=== PATIENT | female | born 1935 | race Caucasian/White ===

== ENCOUNTER 2016-09-24 10:46 | Inpatient (IN) | payer MEDICARE, MEDICAID ==
[~2016-09-24] VITALS: Ht 162.6 cm; Wt 80.6 kg
[~2016-09-24 10:46] MED LIST: ASPIRIN EC81 MG PO; CLARITIN DPS10 MG PO; COLACE-DPS100 MG PO; DELTASONE DPS10 MG PO; DELTASONE DPS20 MG PO; DESYREL-DPS50 MG PO; DIFLUCAN DPS150 MG PO; DIOVAN160 MG PO; DULERA 200/58.8 GM IH; DUONEB DPS3 ML IH; GLUTOSE 1537.5 GM PO; HUMALOG100 UNIT/1 SQ; LANTUS100 UNITS/ SQ; LASIX DPS40 MG PO; LIPITOR DPS40 MG PO; LOTRISONE DPS45 GM TP; MAALOX DPS30 ML PO; NORVASC5 MG PO; NYSTATIN TP; PLAVIX75 MG PO; PROVENTIL HFA6.7 GM IH; SURFAK240 MG PO; TRIAMCINOLONE TP; TYLENOL DPS325 MG PO; ULTRAM DPS50 MG PO; VANTIN DPS200 MG PO; VITAMIN D1000 UNI1 PO; ZEBETA5 MG PO; ZITHROMAX250 MG PO
[2016-09-29] MEDS ORDERED: LEVAQUIN DPS750 MG PO (19:52)
[2016-09-29] MEDS ORDERED: ASA CHILDREN'S81 MG PO (19:52)
[2016-09-29] MEDS ORDERED: GLUTOSE 1537.5 GM PO (19:57)
[2016-09-29] MEDS ORDERED: MAALOX DPS30 ML PO (19:57)
[2016-09-29] MEDS ORDERED: DULCOLAX-DPS10 MG PR (19:59)
--- NOTE | 2016-10-02 09:49 | DS ---
ADMIT: 09/24/2016 RM/LOC: 430 [facility] MR#: [id number] [address] [facility] [address] [place], [place] [address] BABITA MCPHERSON I [address] [place] [address] Discharge Summary SEX: F AGE: 81 : 1935 ADMISSION DATE: 09/24/2016 DISCHARGE DATE: 09/28/2016 DISCHARGE DIAGNOSES: 1. Acute hypoxemic respiratory failure. 2. Severe bilateral pneumonia. 3. Underlying COPD (chronic obstructive pulmonary disease). 4. Diabetes mellitus. 5. Osteoarthritis. 6. Hypertension. 7. History of coronary artery disease. 8. Hypomagnesemia. 9. Constipation. 10.Tremor. 11.Hyperglycemia. HOSPITAL COURSE: The patient was admitted initially to the floor and then was transferred to the ICU because of increasing O2 requirements. She was found to have severe bilateral infiltrates. She did have a CT scan of her chest, which did not show any evidence of a PE. She was placed on broad-spectrum IV antibiotics, IV steroids, and given IV Lasix. She slowly made improvement of her hypoxemic respiratory failure. At the time of discharge, she was on 3 L of oxygen, and her chest x-ray had improved some. Overall, she was relatively stable and the plan was for her to be discharged to a skilled facility for rehab. DISCHARGE INSTRUCTIONS: 1. Aspirin 81 mg p.o. daily. 2. Prednisone 30 mg p.o. daily x5. 3. Desyrel 50 mg p.o. at bedtime. 4. Levaquin 750 p.o. daily x5. 5. Lipitor 40 mg p.o. at bedtime. 6. MiraLAX 17 g p.o. daily. 7. Plavix 75 mg p.o. daily. 8. Omeprazole 20 mg p.o. daily. 9. Advair 250/50 two puffs b.i.d. 10.DuoNebs q.i.d. q.2 hours p.r.n. 11.Levemir 50 units subcutaneous daily. 12.NovoLog sliding scale. 13.Bisoprolol 5 mg p.o. daily. ADMIT: 09/24/2016 RM/LOC: 430 [facility] MR#: [id number] [address] [facility] [address] [place], [place] [address] BABITA MCPHERSON I [facility] [address] [place], [place] [id number] Discharge Summary SEX: F AGE: 81 : 1935 14.Valsartan 160 p.o. daily. 15.NovoLog FlexPen 12 units subcu t.i.d. 16.Nystatin cream daily p.r.n. 17.Lasix 20 mg p.o. daily. 18.Vitamin D 1000 units daily. 19.Loratadine 10 mg p.o. daily. Otherwise, she is to follow up with Dr. Niyah Herrera in one week. She is to have PT/OT see and evaluate. Accu-Cheks AC and HS. An ADA diet. O2 p.r.n. sats less than 90. I spent over 35 minutes in the discharge planning and coordination and care of this patient. Niyah Herrera MD/ angel JOB #: [id number] CC: Niyah Herrera MD, Attending Physician Niyah Herrera MD, Family Physician
--- NOTE | 2016-10-27 09:22 | HP ---
ADMIT: 09/24/2016 RM/LOC: 306 [facility] MR#: [id number] 2620 [facility] [address] [place], [place] [address] RUBA CAREYHARRY [address] [place], [place] [address] History and Physical SEX: F AGE: 81 : 1935 DATE OF SERVICE: HISTORY OF PRESENT ILLNESS: Mrs. Carey is a very pleasant 81-year-old female, patient of Dr. Niyah Herrera, who presented to clinic this morning with a 2- week history of overall not feeling well. She states she hurts from head to toe. She said these symptoms seem to be progressively worsening over the last couple of weeks. She describes her illness as a feeling of burning from the inside out. Has also had intermittent chest tightness, sometimes described as sharp chest pain. Those pains last only a few seconds and then pass. She has also noted increased shortness of breath over the last couple of weeks, this morning she had a very hard time even catching her breath. She notes a cough. It is productive of thick mcneill-colored sputum. Has had intermittent chills and body aches as well. Unsure if she has had a temperature. Notes decreased appetite, nothing tastes good, has had intermittent nausea as well. Today, she complains of a burning in her stomach. She is drinking cold water try to make it feel better. She also notes inability to sleep, this is something new for her, she says she just has a hard time getting comfortable due to body aches and shortness of breath. Before the last 2 weeks, she was actually doing quite well. She recently came off home health care, she does live by herself but has a nephew that lives in town that is able to help her when needed. PAST MEDICAL HISTORY: 1. CAD, status post coronary stents. 2. COPD. 3. Diabetic peripheral neuropathy. 4. GERD. 5. Hyperlipidemia. 6. Hypertension. 7. Osteopenia. 8. Urinary incontinence. 9. Vitamin D deficiency. 10.Bilateral carotid artery disease. 11.Basal cell carcinoma. PAST SURGICAL HISTORY: Cardiac stents, otherwise noncontributory. FAMILY HISTORY: Noncontributory. SOCIAL HISTORY: Lives alone, no alcohol use. She is . MEDICATIONS: 1. Advair 250/50 one puff twice daily. 2. DuoNeb 4 times per day and q.2 hours p.r.n. 3. Norvasc 5 mg p.o. daily. 4. Aspirin 81 mg p.o. daily. 5. Lipitor 40 mg p.o. at bedtime. 6. Zebeta 5 mg one tablet p.o. daily. 7. Plavix 75 p.o. daily. ADMIT: 09/24/2016 RM/LOC: 306 [facility] MR#: [id number] [address] [address] BABITA CAREY I [facility] [address] [place] [address] History and Physical SEX: F AGE: 81 : 1935 8. Vitamin D3 1000 units p.o. daily. 9. Colace 100 mg p.o. b.i.d. p.r.n. 10.Lasix 40 mg p.o. daily. 11.Gabapentin 100 mg at bedtime. 12.NovoLog insulin 12 units t.i.d. 13.Lantus 40 units daily. 14.Prilosec 20 daily. 15.MiraLax 17 g daily. 16.ProAir 2 puffs q.i.d. p.r.n. 17.Renvela 800 mg daily. 18.Tramadol 50 mg every 4 hours as needed for pain. 19.Trazodone 50 mg at bedtime. 20.Diovan 160 mg p.o. daily. ALLERGIES: CIPRO WITH UNKNOWN REACTION HISTORY, CODEINE CAUSING VOMITING, CEDAX WITH UNKNOWN HISTORY, AND PREMARIN CAUSING EYE SWELLING. NO HISTORY OF ALCOHOL USE OR ABUSE. DOES HAVE A HISTORY OF TOBACCO ABUSE. REVIEW OF SYSTEMS: 12-point review of system was complete and otherwise negative as stated in the HPI. PHYSICAL EXAMINATION: VITAL SIGNS: Blood pressure 98/70, temperature 36.8 Celsius, pulse 88, respirations 20, oxygen level 77%. Weight patient declined. SKIN: Pale, with dark red circles underneath each eye. Skin is warm to touch with adequate capillary refill. EYES: PERRL, no drainage present. HEART: She does have a systolic murmur present. Rate is regular. LUNGS: No adventitious sounds auscultated, but does have decreased breath sounds, bilateral lower bases. ABDOMEN: Soft, slightly tender throughout. Bowel sounds are active x4. EXTREMITIES: Peripheral vascular, no obvious edema. NEURO: She is alert and appropriate, adding appropriately to conversation. LABORATORY AND X-RAY DATA: CBC revealed a leukocytosis of 17,000, hemoglobin 12.3. CMP grossly unremarkable although does have a low protein and low albumin and a high blood sugar of 310, creatinine 0.81, potassium 4.3, D-dimer elevated at 4.4, troponin negative. EKG done in clinic that shows slightly irregular heart rate with PACs as well as nonspecific ST changes questionable for history of infarct. Chest x-ray shows very small bilateral pleural effusions and centralized congestion questionable for pneumonia versus pulmonary edema. ASSESSMENT AND PLAN: Given Babita's hypoxia in clinical, sats were only 77% ADMIT: 09/24/2016 RM/LOC: 306 [facility] MR#: [id number] [address] [address] [place] [address] History and Physical SEX: F AGE: 81 : 1935 upon entering room. They eventually came up to 93% with 3 L of oxygen. She continued to complain of shortness of breath even with oxygen. Given her hypoxia, continued shortness of breath and leukocytosis as well as elevated D- dimer, we will admit her to [facility] for further workup. We will order a CT scan since her kidney function is normal. We will also start broad- spectrum antibiotics. Her blood pressure is slightly low at 98/50. So, we will hold her blood pressure medications and give her a saline bolus of IV fluids. We will also finish out septic workup with procalcitonin and UA. Repeat EKG in the morning. The patient's nephew was called and he was able to come and pick her up and take her directly over to the hospital for admission. This plan was discussed with Dr. Niyah Herrera, who will continue her care while in the hospital. Daniela Patel APRN / Niyah Herrera MD / janice JOB #: [id number] CC: Niyah Herrera, Attending Physician Niyah Herrera, Family Physician
[2016-11-29] MEDS ORDERED: DESYREL-DPS50 MG PO (12:17)
[2016-11-29] MEDS ORDERED: DELTASONE DPS10 MG PO (12:17)
[2016-11-29] MEDS ORDERED: MIRALAX PACKET17 GM PO (12:17)
[2016-11-29] MEDS ORDERED: LIPITOR40 MG PO (12:17)
[2016-11-29] MEDS ORDERED: PLAVIX75 MG PO (12:18)
[2016-11-29] MEDS ORDERED: PROTONIX40 MG PO (12:18)
[2016-11-29] MEDS ORDERED: DUONEB DPS3 ML IH (12:19)
[2016-11-29] MEDS ORDERED: DULERA 200/58.8 GM IH (12:19)
[2016-11-29] MEDS ORDERED: NOVOLOG100 UNIT/2 SQ ×2 (12:20→12:23)
[2016-11-29] MEDS ORDERED: LEVEMIR100 UNIT/1 SQ (12:20)
[2016-11-29] MEDS ORDERED: CEFTIN DPS500 MG PO (12:21)
[2016-11-29] MEDS ORDERED: CLARITIN DPS10 MG PO (12:21)
[2016-11-29] MEDS ORDERED: ZITHROMAX250 MG PO (12:22)
[2016-11-29] MEDS ORDERED: FLONASE 0.05% D16 GM NS (12:22)
[2016-11-29] MEDS ORDERED: MUCINEX600 MG PO (12:22)
[2016-11-29] MEDS ORDERED: ZEBETA5 MG PO (12:22)
[2016-11-29] MEDS ORDERED: VITAMIN D1000 UNI1 PO (12:22)
[2016-11-29] MEDS ORDERED: AMBIEN DPS5 MG PO (12:23)
[2016-11-29] MEDS ORDERED: GLUTOSE 1537.5 GM PO (12:24)
[2016-11-29] MEDS ORDERED: COLACE-DPS100 MG PO (12:24)
[2016-11-29] MEDS ORDERED: TYLENOL DPS325 MG PO (12:25)
[2016-11-29] MEDS ORDERED: ULTRAM DPS50 MG PO (12:25)
[2016-11-29] MEDS ORDERED: SURFAK DPS240 MG PO (12:25)
[2016-11-29] MEDS ORDERED: DIOVAN160 MG PO (12:27)
[2016-11-29] MEDS ORDERED: LASIX DPS20 MG PO (12:27)
[2016-11-29] MEDS ORDERED: MACRODANTIN DPS50 MG PO (12:27)
[2016-11-29] MEDS ORDERED: COUMADIN5 MG PO (12:28)
[2016-11-29] MEDS ORDERED: LOVENOX DP30 MG/0.3 SQ (12:28)
== END 2016-09-28 11:46 | DRG 189 ==
LOC: 4PCU 10:46 → 3ICU 10:46 → 4PCU 09-26 12:30
PROVIDERS: ADMIT Internal Medicine
DX: J96.01 Acute respiratory failure with hypoxia (principal); J18.9 Pneumonia, unspecified organism; J44.0 Chronic obstructive pulmonary disease with (acute) lower respiratory infection; E11.42 Type 2 diabetes mellitus with diabetic polyneuropathy; M19.90 Unspecified osteoarthritis, unspecified site; I25.10 Atherosclerotic heart disease of native coronary artery without angina pectoris; T50.905A Adverse effect of unspecified drugs, medicaments and biological substances, initial encounter; E83.42 Hypomagnesemia; R25.1 Tremor, unspecified; K59.00 Constipation, unspecified; J45.909 Unspecified asthma, uncomplicated; K21.9 Gastro-esophageal reflux disease without esophagitis; E78.5 Hyperlipidemia, unspecified; I10 Essential (primary) hypertension; M85.80 Other specified disorders of bone density and structure, unspecified site; R32 Unspecified urinary incontinence; I77.9 Disorder of arteries and arterioles, unspecified; Z95.5 Presence of coronary angioplasty implant and graft; Z85.828 Personal history of other malignant neoplasm of skin; Z79.82 Long term (current) use of aspirin

== ENCOUNTER 2016-11-20 08:56 | Inpatient (IN) | payer MEDICARE, MEDICAID ==
[~2016-11-20] VITALS: Ht 162.6 cm; Wt 80.6 kg
[~2016-11-20 08:56] MED LIST changes: +ASA CHILDREN'S81 MG PO; +DULCOLAX-DPS10 MG PR; +LEVAQUIN DPS750 MG PO
--- NOTE | 2016-11-22 12:10 | HP ---
ADMIT: 11/20/2016 RM/LOC: 518 [facility] MR#: [id number] [facility]#: [id number] 2620 [facility] [address] [place], [place] [address] BABITA CAREY Har[address] [place] [address] History and Physical SEX: F AGE: 81 : 1935 DATE OF SERVICE: I spent over 35 minutes in the admission and evaluation of this patient. REASON FOR ADMISSION: Weakness, hypoxia, and left leg pain. HISTORY OF PRESENT ILLNESS: Ms. Carey is a very pleasant, 81-year-old female. She has a past medical history significant for history of coronary artery disease, COPD, GERD, hypertension, hyperlipidemia, who was seen in the office for a 2-week followup after discharge from the [facility]. She had recently been hospitalized with pretty severe bilateral pneumonia. She had recovered from that and had been discharged home. In the office, she reports that she has just been feeling very weak. She hurts all over. Notes that she has been having a lot of left leg pain, and in general is not feeling well. In the office, she was noted to have an oxygen sat on room air of 88%. She was noted to have marked left leg edema. She had rales throughout, and it was felt she warranted admission for further evaluation and treatment. The patient reports that she maybe had been having some sweats and chills. She also had a decreased appetite. PAST MEDICAL HISTORY: Significant for; 1. Coronary artery disease, status post coronary stents previously. 2. COPD. 3. Diabetes with peripheral neuropathy. 4. GERD. 5. Hypertension. 6. Hyperlipidemia. 7. Osteopenia. 8. Urinary incontinence. 9. Vitamin D deficiency. 10.History of basal cell carcinoma of the face. 11.Bilateral carotid artery disease. ALLERGIES: LISTED NSAIDS. MEDICATIONS: At home are; 1. DuoNeb q.i.d. and q.2 hours p.r.n. 2. Maalox. 3. Amlodipine 5 mg p.o. daily. 4. Aspirin 81 mg p.o. daily. 5. Lipitor 40 mg p.o. at bedtime. 6. Dulcolax suppository p.r.n. 7. Bisoprolol 5 mg p.o. daily. 8. Vitamin D 1000 units daily. 9. Calcium. 10.Plavix 75 mg p.o. daily. 11.Advair 250/50 b.i.d. 12.Furosemide 20 mg p.o. daily. 13.NovoLog 12 units three times daily with meals. ADMIT: 11/20/2016 RM/LOC: 518 [facility] MR#: [id number] [address] [address] [address] C[address]Y [address] [place] [address] History and Physical SEX: F AGE: 81 : 1935 14.Levemir 50 units daily. 15.Loratadine 10 mg p.o. daily. 16.Protonix 40 mg p.o. daily. 17.Tramadol p.r.n. 18.Trazodone 50 mg p.o. at bedtime. 19.Valsartan 160 p.o. daily. 20.Ambien 5 mg p.o. at bedtime. 21.Nitrofurantoin 50 mg p.o. daily. 22.Fluticasone nasal spray. 23.Ventolin. SOCIAL HISTORY: She lives alone. Does not use any alcohol or smoke. She is . FAMILY HISTORY: Relatively noncontributory. REVIEW OF SYSTEMS: She does complain of a lot of low back pain. PHYSICAL EXAMINATION: GENERAL: She appears pale. She just appears fatigued. HEENT: Pupils are equal, round, reactive. Oropharynx has dry mucous membranes. NECK: Supple. HEART: Normal rate with a regular rhythm. LUNGS: Have expiratory wheezes and rales bilaterally. ABDOMEN: Soft. Bowel sounds are present. EXTREMITIES: Her left lower extremity is noted to be slightly purplish, but she has good cap refill. She is noted to have 2 to 3+ lower extremity edema. ASSESSMENT AND PLAN: 1. Hypoxia. At this time, I am concerned that patient has recurrence of her pneumonia. We will go ahead and have her admitted for further evaluation and treatment. 2. Left leg pain. We will go ahead and check her for venous Doppler to make sure that there is no deep vein thrombosis. 3. Low back pain. She did have evidence on her last CT and MRI of severe spinal stenosis with left-sided disc protrusion, may benefit from an epidural. 4. Diabetes mellitus. 5. Weakness. Will likely need some rehab. Niyah Herrera MD/ janice JOB #: [id number] CC: Niyah Herrera, Attending Physician Niyah Herrera, Family Physician
--- NOTE | 2016-11-27 08:16 | ER ---
ADMIT: 11/20/2016 RM/LOC: 518 [facility] MR#: [id number] 2620 [facility] [address] [place], [place] [address] BABITA MCPHERSON I [address] [place] [address] Emergency Room Report SEX: F AGE: 81 : 1935 DATE: 11/25/2016 This 81-year-old white female, developed a nose bleed up on the floor. We had to bring her down in order to control it. She is on Coumadin. She is anticoagulated. They do not have anything on the floor, ENT service, so we brought her down here and I put a small Rhino rocket in. We seemed to have stopped the bleeding. We are going to keep it in for 24 hours, then Dr. Jacobsen may be in, in the morning and he can address it if need be. Alberto Kohli MD/ janice JOB #: [id number] CC: Niyah Herrera MD, Attending Physician Niyah Herrera MD, Family Physician
--- NOTE | 2016-11-28 06:36 | OR ---
ADMIT: 11/20/2016 RM/LOC: 518 [facility] MR#: [id number] [address] [place] [address] [place], [place] [address] BABITA MCPHERSON I [address] [place] [address] Operative/Delivery Room Report SEX: F AGE: 81 : 1935 SURGERY DATE: 11/27/2016 SURGEON: Vazquez Jacobsen MD PREOPERATIVE DIAGNOSIS: Epistaxis, left anterior. POSTOPERATIVE DIAGNOSIS: Epistaxis, left anterior. OPERATION: Rhino Rocket removal, control of arterial epistaxis, anterior septum, CSA 2. DESCRIPTION OF PROCEDURE: With the patient in the hospital room in sitting position in her hospital chair, her Rhino Rocket was removed. This was carried out without difficulty, but immediately upon removal, she redeveloped nose bleed brisk bright red from left side of nose. Cottonoid pledgets with Afrin were then placed in the left anterior naris which allowed reduction in the active bleed. Identification of the artery was present at anterior septum, the junction of CSA 1 and CSA 2, superior aspect of septum. There were no ulcerations, polyps, lesions, or purulence identified. A cotton pack with Afrin was then repositioned. This allowed good control of the arterial bleed, was left in position with subsequent removal to reassess the status of the artery. There was good control of the active bleeding. The artery was then treated with topical silver nitrate pledget and reposition of an anterior pack using Gelfoam pledget. She tolerated this well, and following procedure, there was no active bleeding in the nose and no active postnasal blood. Recommended to allow Gel-Foam pack to remain in position for additional 24-48 hours. I will reassess her nose while in hospital stay. Vazquez Jacobsen MD/ janice JOB #: [id number] CC: Niyah Herrera, Attending Physician Niyah Herrera, Family Physician
--- NOTE | 2016-11-28 06:36 | CO ---
ADMIT: 11/20/2016 RM/LOC: 518 [facility] MR#: [id number] 2620 [facility] [address] [place], [place] [address] BABITA CAREY Harmeet [address] [place] [address] Consultation SEX: F AGE: 81 : 1935 DATE OF CONSULTATION: 11/27/2016 ATTENDING PHYSICIAN: Niyah Herrera CONSULTING PHYSICIAN: Vazquez Jacobsen MD CHIEF COMPLAINT: Nose bleed. HISTORY OF PRESENT ILLNESS: Ms. Carey developed a nosebleed while in the hospital one day prior to this examination (11/26/2016), was previously on anticoagulant therapy which has been discontinued and presently has a Rhino Rocket in place in the left side of nose with control of active bleed. She does have past history of nosebleeds that required silver nitrate cautery several years ago but has not had significant difficulty with nosebleeds since until this episode that began yesterday. PHYSICAL EXAMINATION: Shows her to be in no acute distress. Rhino Rocket is firmly in position in the left side of nose. Right nasal airway is patent other than small amount of mucus, but no active bleeding sites and no fresh blood. Mouth and pharynx clear. No active postnasal blood, and no cervical adenopathy. IMPRESSION: Acute epistaxis, left nasal anterior, controlled at present with Rhino Rocket. RECOMMENDATION: Continue Rhino Rocket and place additional 24 hours. We will then attempt to remove Rhino Rocket to reassess the status of the left anterior nosebleed. Vazquez Jacobsen MD/ janice JOB #: [id number] CC: Niyah Herrera, Attending Physician Niyah Herrera, Family Physician
--- NOTE | 2016-11-29 11:38 | DS ---
ADMIT: 11/20/2016 RM/LOC: 518 [facility] MR#: [id number] 2620 [facility] [address] [place], [place] [address] BABITA MCPHERSON I [address] [place] [address] Discharge Summary SEX: F AGE: 81 : 1935 ADMISSION DATE: 11/20/2016 DISCHARGE DATE: 11/28/2016 DISCHARGE DIAGNOSES: 1. Hypoxia. 2. Left lower extremity DVT (deep venous thrombosis). 3. Interstitial lung disease. 4. Pneumonia. 5. History of coronary artery disease. 6. Hypertension. 7. History of COPD (chronic obstructive pulmonary disease). 8. Gastroesophageal reflux disease. 9. Diabetic peripheral neuropathy. 10.Hypertension. 11.Hyperlipidemia. 12.Osteopenia. 13.Shoulder osteoarthritis. 14.History of bilateral carotid artery disease. 15.History of basal cell carcinoma of the face. 16.Vitamin D deficiency. 17.Urinary incontinence. 18.Chronic low back pain. HOSPITAL COURSE: The patient was admitted through the clinic. She was given IV antibiotics as well as subq Lovenox and started on p.o. Coumadin. The patient then went on to develop a nose bleed and actually had to be seen in the ER to have a rhino rocket placed. She was then seen by ENT. The rhino rocket was removed and an anterior bleed was cauterized. The patient did have any further evidence of epistasis; however, she had her blood thinners on hold. She otherwise was noted to initially be on 4 L of oxygen, but this was tapered to off and she was still having a little bit of cough, but otherwise her pneumonia was improved at the time of discharge. With regard to her initial lung disease pattern, I did do a workup including a sedimentation rate, CRP, rheumatoid factor, and AZUL, which were all within normal limits. Otherwise, the patient was doing relatively well at the time of discharge. The plan was for her to go to a skilled facility with her increased weakness. Therefore, she was discharged to a skilled facility. Her meds were: 1. Ceftin 500 mg p.o. b.i.d. x3 days. 2. Claritin 10 mg p.o. daily. 3. Prednisone 20 mg p.o. daily x3 days. 4. Trazodone 50 mg p.o. at bedtime. 5. Lipitor 40 mg p.o. at bedtime. 6. MiraLAX 17 g p.o. daily. 7. Mucinex 600 mg p.o. b.i.d. 8. Plavix 75 mg p.o. daily. 9. Protonix 40 mg p.o. daily. 10.Vitamin D 1000 units daily. 11.Zebeta 5 mg p.o. daily. 12.Zithromax 250 p.o. daily x3 days. ADMIT: 11/20/2016 RM/LOC: 518 [facility] MR#: [id number] [facility] [address] [address] BABITA MCPHERSON I [facility] [address] [place] [address] Discharge Summary SEX: F AGE: 81 : 1935 13.Advair 250/50 one puff b.i.d. 14.DuoNeb q.i.d. and q.2 hours p.r.n. 15.Levemir 50 units subcutaneous daily. 16.NovoLog sliding scale with meals only. 17.NovoLog 12 units with meals. 18.She has multiple p.r.n.s. 19.She is also noted to be on Coumadin 5 mg p.o. daily. 20.She is also to be on Lovenox 1 mg/kg subq b.i.d. She is to have PT/OT, diabetic diet, and Accu-Cheks AC and HS. She is to have an INR Saturday and Saturday. Follow up with Dr. Niyah Herrera in one week. 02 p.r.n. sats less than 90. I did spend 40 minutes on the discharge planning and coordination care with this patient. Niyah Herrera MD/ ondina JOB #: [id number] CC: Niyah Herrera MD, Attending Physician Niyah Herrera MD, Family Physician
[2016-11-29] MEDS ORDERED: LIPITOR40 MG PO (12:17)
[2016-11-29] MEDS ORDERED: DELTASONE DPS10 MG PO (12:17)
[2016-11-29] MEDS ORDERED: DESYREL-DPS50 MG PO (12:17)
[2016-11-29] MEDS ORDERED: MIRALAX PACKET17 GM PO (12:17)
[2016-11-29] MEDS ORDERED: PROTONIX40 MG PO (12:18)
[2016-11-29] MEDS ORDERED: PLAVIX75 MG PO (12:18)
[2016-11-29] MEDS ORDERED: DULERA 200/58.8 GM IH (12:19)
[2016-11-29] MEDS ORDERED: DUONEB DPS3 ML IH (12:19)
[2016-11-29] MEDS ORDERED: LEVEMIR100 UNIT/1 SQ (12:20)
[2016-11-29] MEDS ORDERED: NOVOLOG100 UNIT/2 SQ ×2 (12:20→12:23)
[2016-11-29] MEDS ORDERED: CEFTIN DPS500 MG PO (12:21)
[2016-11-29] MEDS ORDERED: CLARITIN DPS10 MG PO (12:21)
[2016-11-29] MEDS ORDERED: VITAMIN D1000 UNI1 PO (12:22)
[2016-11-29] MEDS ORDERED: ZEBETA5 MG PO (12:22)
[2016-11-29] MEDS ORDERED: FLONASE 0.05% D16 GM NS (12:22)
[2016-11-29] MEDS ORDERED: MUCINEX600 MG PO (12:22)
[2016-11-29] MEDS ORDERED: ZITHROMAX250 MG PO (12:22)
[2016-11-29] MEDS ORDERED: AMBIEN DPS5 MG PO (12:23)
[2016-11-29] MEDS ORDERED: COLACE-DPS100 MG PO (12:24)
[2016-11-29] MEDS ORDERED: GLUTOSE 1537.5 GM PO (12:24)
[2016-11-29] MEDS ORDERED: ULTRAM DPS50 MG PO (12:25)
[2016-11-29] MEDS ORDERED: TYLENOL DPS325 MG PO (12:25)
[2016-11-29] MEDS ORDERED: SURFAK DPS240 MG PO (12:25)
[2016-11-29] MEDS ORDERED: MACRODANTIN DPS50 MG PO (12:27)
[2016-11-29] MEDS ORDERED: LASIX DPS20 MG PO (12:27)
[2016-11-29] MEDS ORDERED: DIOVAN160 MG PO (12:27)
[2016-11-29] MEDS ORDERED: COUMADIN5 MG PO (12:28)
[2016-11-29] MEDS ORDERED: LOVENOX DP30 MG/0.3 SQ (12:28)
== END 2016-11-28 13:10 | DRG 299 ==
LOC: 5MS 08:56
PROVIDERS: ADMIT Internal Medicine
DX: I82.412 Acute embolism and thrombosis of left femoral vein (principal); J18.9 Pneumonia, unspecified organism; J84.9 Interstitial pulmonary disease, unspecified; I82.432 Acute embolism and thrombosis of left popliteal vein; J44.0 Chronic obstructive pulmonary disease with (acute) lower respiratory infection; E11.42 Type 2 diabetes mellitus with diabetic polyneuropathy; R04.0 Epistaxis; K22.4 Dyskinesia of esophagus; R09.02 Hypoxemia; I25.10 Atherosclerotic heart disease of native coronary artery without angina pectoris; K21.9 Gastro-esophageal reflux disease without esophagitis; I10 Essential (primary) hypertension; E78.5 Hyperlipidemia, unspecified; M48.00 Spinal stenosis, site unspecified; M85.80 Other specified disorders of bone density and structure, unspecified site; E55.9 Vitamin D deficiency, unspecified; I77.9 Disorder of arteries and arterioles, unspecified; R32 Unspecified urinary incontinence; Z79.82 Long term (current) use of aspirin; Z85.828 Personal history of other malignant neoplasm of skin; Z79.4 Long term (current) use of insulin; Z95.5 Presence of coronary angioplasty implant and graft; Z79.02 Long term (current) use of antithrombotics/antiplatelets; Z66 Do not resuscitate